=== PATIENT | male | born 1950 | race Caucasian/White ===

== ENCOUNTER 2024-11-06 21:51 | Emergency (ER) | payer MEDICARE, BC ==
[~2024-11-06] VITALS: Ht 172.7 cm; Wt 81.8 kg
[2024-11-06 21:52] VITALS: O2SAT 98
[2024-11-06 22:59] VITALS: BP 138/74; PULSE 62; RESP 18; TEMP 98.5; O2SAT 98
[2024-11-07] MEDS ORDERED: LIDOCAINE HCL/PF 1% 10 MG/ML 5ML VIAL INFIL ONE
[2024-11-07] MEDS ORDERED: AMOX1TAB16 MT (00:06)
[2024-11-07] MEDS: IBUPROFEN 600MG TABLET PO ONE (01:25)
[2024-11-07] MEDS: BACITRACIN ZINC OINT UDPKT TOP ONE (01:25)
== END 2024-11-07 01:27 | disposition home or self-care (01) ==
LOC: ER 21:51
DX: S61.210A Laceration without foreign body of right index finger without damage to nail, initial encounter (principal); Z23 Encounter for immunization; W54.0XXA Bitten by dog, initial encounter; Y93.89 Activity, other specified; Y92.89 Other specified places as the place of occurrence of the external cause; Y99.8 Other external cause status
CPT/HCPCS: 12001; 99283; A4565